=== PATIENT | male | born 1985 | race Caucasian/White ===

== ENCOUNTER 2016-12-01 14:27 | Emergency (ER) | payer OTHER ==
[2016-12-01 14:49] VITALS: BP 161/89; PULSE 91; RESP 18; TEMP 98.3
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
== END 2016-12-01 15:40 | disposition home or self-care (01) ==
LOC: EC 14:27
DX: S61.212A Laceration without foreign body of right middle finger without damage to nail, initial encounter (principal); S80.10XA Contusion of unspecified lower leg, initial encounter; X58.XXXA Exposure to other specified factors, initial encounter; Y92.69 Other specified industrial and construction area as the place of occurrence of the external cause; Y99.0 Civilian activity done for income or pay
CPT/HCPCS: 99282

== ENCOUNTER → 2016-12-04 | Outpatient (CLI) | payer OTHER ==
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
== END | disposition home or self-care (01) ==
LOC: RADUSWWP 14:06
PROVIDERS: ATTEND Emergency Medicine
DX: N43.3 Hydrocele, unspecified (principal)
CPT/HCPCS: 76870; 93975

== ENCOUNTER 2022-07-07 21:28 | Emergency (ER) | payer OTHER ==
[2022-07-07 21:38] VITALS: BP 137/83; PULSE 71; RESP 18; TEMP 98
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
[2022-07-07] MEDS ORDERED: ACETAMINOPHEN TAB 500 MG TAB PO STA (21:52)
[2022-07-07] MEDS ORDERED: IBUPROFEN 800 MG TAB PO STA (21:52)
== END 2022-07-07 22:03 | disposition home or self-care (01) ==
LOC: EC 21:28
DX: M54.2 Cervicalgia (principal); Y03.0XXA Assault by being hit or run over by motor vehicle, initial encounter
CPT/HCPCS: 99283

== ENCOUNTER → 2023-08-11 | Outpatient (CLI) | payer OTHER ==
--- NOTE | 2023-08-11 15:59 | XR ---
EXAMINATION TYPE: XR knee complete LT DATE OF EXAM: 08/11/2023 COMPARISON: None HISTORY: 38-year-old male [id number] SPRAIN OF LEFT KNEE TECHNIQUE: 3 views FINDINGS: Mild degenerative spurring at the medial and patellofemoral compartments. There is a [id number] e underlying knee joint effusion. Extensor mechanism appears intact. No acute fracture, subluxation, or dislocation. IMPRESSION: Mild degenerative spurring medial and patellofemoral compartments. There is a [id number] knee joint effusion but no acute osseous abnormality seen. If pain persists or if there is concern for int ernal derangement, MRI can be performed.
== END | disposition home or self-care (01) ==
LOC: RADXRMAIN 15:39
PROVIDERS: ATTEND Emergency Medicine
DX: S83.92XA Sprain of unspecified site of left knee, initial encounter (principal); M17.12 Unilateral primary osteoarthritis, left knee; M25.462 Effusion, left knee; X58.XXXA Exposure to other specified factors, initial encounter